=== PATIENT | male | born 1935 | race Caucasian/White ===

== ENCOUNTER 2023-05-05 10:31 | Emergency (ER) | payer MEDICARE, SELFPAY ==
[2023-05-05 10:35] VITALS: BP 178/101; PULSE 68; RESP 16; TEMP 36.2; O2SAT 99
--- NOTE | 2023-05-05 10:39 | ED.SKABFB ---
HPI - Skin/Abscess/Foreign Bdy General Chief complaint: Extremity Injury, Upper Stated complaint: infection R/ elbow Time Seen by Provider: 05/05/23 10:37 History of Present Illness HPI narrative: Patient is a 87-year-old male history of gout presenting today with right elbow pain. He reports that he fell 10 days ago. He has been doing well he has no numbness tingling or weakness. He did have some swelling over his olecranon got progressively worse. 2 days ago it drained quite a bit. He is an open sore no significant erythema or drainage now. He is not had any fever or chills. Concern that it might be getting infected. No numbness tingling or weakness. Related Data Previous Rx's Medication Instructions Recorded cephalexin 500 mg capsule 500 mg PO TID #21 caps 05/05/23 Allergies Allergy/AdvReac Type Severity Reaction Status Date / Time No Known Drug Allergies Allergy Verified 05/05/23 10:46 Patient History Social History Smoking Status: Never smoker Exam Initial Vital Signs Initial Vital Signs: Vital Signs Temperature 97.1 F L 05/05/23 10:35 Pulse Rate 68 05/05/23 10:35 Respiratory Rate 16 05/05/23 10:35 Blood Pressure 178/101 H 05/05/23 10:35 Pulse Oximetry 99 05/05/23 10:35 Oxygen Delivery Method Room Air 05/05/23 10:35 GENERAL: Alert pleasant 87-year-old male CARDIOVASCULAR: peripheral pulses in tact, cap refill <2 sec RESPIRATORY: No respiratory distress, speaks in full sentences without difficulty EXTREMITIES: Normal range of motion, no clubbing or edema. Neurovascularly intact Right upper extremity swelling over olecranon abrasion noted no significant erythema full range of motion distal radial pulse intact NEUROLOGICAL: Cranial nerves II through XII grossly intact. Normal gait and speech. SKIN: Right olecranon open wound no active draining minimal surrounding erythema Course Vital Signs Vital signs: Vital Signs - 8 hr 05/05/23 10:35 05/05/23 10:48 Temperature 97.1 F L Pulse Rate 68 Pulse Rate [Right Radial] 78 Respiratory Rate 16 Blood Pressure 178/101 H Pulse Oximetry 99 Oxygen Delivery Method Room Air MDM - Skin/Abscess/Foreign Bdy MDM Narrative Medical decision making narrative: 87-year-old male presents today with right elbow pain. He fell 10 days ago. He has full range of motion no numbness tingling or weakness. He likely has a bursitis. It did drain quite a bit couple days ago. Minimal erythema. No evidence of septic joint he is afebrile. I do think reasonable to start on antibiotics. Discharge Plan Departure Patient Disposition: Home Clinical Impression: Bursitis Instructions: DI for Bursitis Activity Restrictions/Additional Instructions: *You have been diagnosed with right elbow bursitis *What to do: At this time reasonable to start on antibiotics but overall does not appear grossly infected. Elevate ice. *Continue to take medications as directed Keflex 500 mg 3 times a day for 7 days--ok to start tomorrow *Follow up with your primary care provider in 2-3 days or call [phone] *Return to ER if you should have increased redness fever chills decreased range of or any new, worsening or concerning symptoms Prescriptions: New cephalexin 500 mg capsule 500 mg PO TID Qty: 21 0RF Referrals: Miscellaneous,[facility] [Primary Care Provider] - Stand Alone Forms: Patient Portal/API
[2023-05-05 10:48] VITALS: PULSE 78
== END 2023-05-05 11:35 | disposition home or self-care (01) ==
LOC: ED 11:26
PROVIDERS: Emergency Provider Emergency Medicine
DX: M70.31 Other bursitis of elbow, right elbow (principal); W18.30XA Fall on same level, unspecified, initial encounter
CPT/HCPCS: 99281